=== PATIENT | female | born 1970 | race Hispanic/Latino ===

== ENCOUNTER 2017-10-31 12:04 | Outpatient (CLI) | payer OTHER ==
--- NOTE | 2017-10-31 12:42 | XRay Report ---
AP AND LATERAL CERVICAL SPINE: Pain. The vertebral bodies are well mineralized and normal in alignment and vertebral height with well preserved interspace distances. The visualized portions of the posterior elements are normal. IMPRESSION: Normal study.
--- NOTE | 2017-10-31 12:56 | XRay Report ---
THORACIC SPINE RADIOGRAPHS INDICATION: Thoracic back pain. COMPARISON: None similar. FINDINGS: AP and lateral thoracic spine radiographs demonstrate mild mid thoracic degenerative spurring. Grossly preserved vertebral body stature and alignment. No abnormal paraspinal density. Clear imaged lungs. CONCLUSION: Mild thoracic spondylosis, as described. Thank you for the opportunity to participate in this patient's care.
== END 2017-10-31 12:05 | disposition home or self-care (01) ==
LOC: SPVIMAG 12:04
PROVIDERS: ATTEND Physical Medicine & Rehabilitation
DX: M47.894 Other spondylosis, thoracic region (principal); M89.8X1 Other specified disorders of bone, shoulder
CPT/HCPCS: 72040; 72070